=== PATIENT | female | born 1965 ===

== ENCOUNTER 2017-03-31 15:14 | Emergency (ER) | payer BC ==
[2017-03-31 15:58] VITALS: BP 138/86
--- NOTE | 2017-03-31 16:25 | UC ---
FLU HPI - HPI Summary HPI Summary: Body aches, sore throat fever, sinus pain and congestions "feels like when I get strep throat" - History of Current Complaint Chief Complaint: UCGeneralIllness Stated Complaint: SORE THROAT,SINUSES Time Seen by Provider: 03/31/17 16:14 Hx Obtained From: Patient Hx Last Menstrual Period: ablation ?: No Onset/Duration: Sudden Onset, Lasting Days - 5 Severity Currently: Moderate Severity Initially: Mild Associated Signs & Symptoms: Positive: Fever, Myalgia, Cough, Sore Throat, Nasal Congestion - Allergy/Home Medications Allergies/Adverse Reactions: Allergies Allergy/AdvReac Type Severity Reaction Status Date / Time No Known Allergies Allergy Verified 03/31/17 15:58 Home Medications: Home Medications ALPRAZolam TAB* [Xanax TAB*] 0.5 mg PO BID 03/31/17 [History Confirmed 03/31/17] PMH/Surg Hx/FS Hx/Imm Hx Previously Healthy: Yes - Surgical History Surgical History: Yes Surgery Procedure, Year, and Place: uterine ablation. 4 knee surg. lower jaw. left wrist - Family History Known Family History: Positive: None - Social History Occupation: Employed Full-time Lives: With Family Alcohol Use: None Substance Use Type: None Smoking Status (MU): Never Smoked Tobacco - Immunization History Most Recent Influenza Vaccination: none Review of Systems Constitutional: Fever, Chills, Fatigue Skin: Negative Eyes: Negative ENT: Sore Throat, Nasal Discharge, Sinus Congestion Respiratory: Cough Cardiovascular: Negative Gastrointestinal: Negative Genitourinary: Negative Motor: Negative Neurovascular: Negative Musculoskeletal: Negative Neurological: Negative Psychological: Negative Is Patient Immunocompromised?: No All Other Systems Reviewed And Are Negative: Yes Physical Exam Triage Information Reviewed: Yes Appearance: Well-Appearing, No Pain Distress, Well-Nourished Vital Signs: Initial Vital Signs Temp 99.1 F 03/31/17 15:53 Pulse 94 03/31/17 15:53 Resp 15 03/31/17 15:53 BP 138/86 03/31/17 15:53 Pulse Ox 99 03/31/17 15:53 Vital Signs Reviewed: Yes Eye Exam: Normal Eyes: Positive: Conjunctiva Clear ENT Exam: Normal ENT: Positive: Normal ENT inspection, Hearing grossly normal, Pharynx normal, Nasal congestion, Nasal drainage, TMs normal, Uvula midline. Negative: Tonsillar swelling, Tonsillar exudate, Trismus, Muffled voice, Hoarse voice, Dental tenderness, Sinus tenderness Dental Exam: Normal Neck exam: Normal Neck: Positive: Supple, Nontender, No Lymphadenopathy Respiratory Exam: Normal Respiratory: Positive: Chest non-tender, Lungs clear, Normal breath sounds, No respiratory distress, No accessory muscle use Cardiovascular Exam: Normal Cardiovascular: Positive: RRR, No Murmur, Pulses Normal, Brisk Capillary Refill Musculoskeletal Exam: Normal Musculoskeletal: Positive: Strength Intact, ROM Intact, No Edema Neurological Exam: Normal Neurological: Positive: Alert, Muscle Tone Normal Psychological Exam: Normal Skin Exam: Normal Diagnostics - Laboratory Diagnostic Studies Completed/Ordered: Influenza A positive Flu Course/Dx - Course Course Of Treatment: rest increase fluids tylenol ibuprofen for pain recheck prn with pcp - Differential Dx/Diagnosis Provider Diagnoses: Influenza A Discharge - Discharge Plan Condition: Stable Disposition: HOME Patient Education Materials: Influenza (ED) Referrals: [facility] [Outside] - If Needed
== END 2017-03-31 17:08 | disposition home or self-care (01) ==
LOC: UCCORT 15:14
DX: J11.1 Influenza due to unidentified influenza virus with other respiratory manifestations (principal)
CPT/HCPCS: 87502; 87651; 99201; G0463

== ENCOUNTER 2018-03-08 07:35 | Emergency (ER) | payer BC ==
[2018-03-08 07:48] VITALS: BP 120/82
--- NOTE | 2018-03-08 08:11 | UC ---
Ear Complaint HPI - HPI Summary HPI Summary: left side ear pressure / plugged x 7 days sinus pressure, nasal congestion , no fever, no chills , no cough - History of Current Complaint Chief Complaint: UCEar Stated Complaint: LEFT EAR CONCERN Time Seen by Provider: 03/08/18 07:48 Hx Obtained From: Patient Hx Last Menstrual Period: ablation ?: No Onset/Duration: Gradual Onset, Lasting Days - 7, Still Present Severity Initially: Moderate Severity Currently: Moderate Pain Intensity: 8 Aggravating Factors: Nothing Alleviating Factors: Nothing Associated Signs/Symptoms: Positive: Hearing Loss - right side - Allergies/Home Medications Allergies/Adverse Reactions: Allergies Allergy/AdvReac Type Severity Reaction Status Date / Time No Known Allergies Allergy Verified 03/08/18 07:43 Home Medications: Home Medications diPHENhydraMINE PO* [Benadryl PO 25 MG TAB*] 50 mg PO ONCE 03/08/18 [History Confirmed 03/08/18] PMH/Surg Hx/FS Hx/Imm Hx Previously Healthy: Yes - Surgical History Surgical History: Yes Surgery Procedure, Year, and Place: uterine ablation. 4 knee surg. lower jaw. left wrist - Family History Known Family History: Positive: None Negative: Diabetes - Social History Alcohol Use: None Substance Use Type: None Smoking Status (MU): Never Smoked Tobacco - Immunization History Most Recent Influenza Vaccination: none Review of Systems All Other Systems Reviewed And Are Negative: Yes Constitutional: Positive: Negative Skin: Positive: Negative Eyes: Positive: Negative ENT: Positive: Negative Respiratory: Positive: Negative Is Patient Immunocompromised?: No Physical Exam Triage Information Reviewed: Yes Appearance: Well-Appearing, No Pain Distress, Well-Nourished Vital Signs: Initial Vital Signs Temp 98.7 F 03/08/18 07:44 Pulse 84 03/08/18 07:44 Resp 14 03/08/18 07:44 BP 120/82 03/08/18 07:44 Pulse Ox 100 03/08/18 07:44 Vital Signs Reviewed: Yes Eye Exam: Normal Eyes: Positive: Conjunctiva Clear ENT: Positive: Normal ENT inspection, Hearing grossly normal, Pharynx normal, TM dull - left ear, Other - increase cerumen left ear , was flushed with warm water. Negative: TMs normal, TM bulging Neck exam: Normal Neck: Positive: Supple, Nontender, No Lymphadenopathy Respiratory: Positive: Chest non-tender, Lungs clear, Normal breath sounds Cardiovascular: Positive: RRR, No Murmur, Pulses Normal Abdominal Exam: Normal Abdomen Description: Positive: Nontender, No Organomegaly, Soft Skin Exam: Normal Ear Complaint Course/Dx - Differential Dx/Diagnosis Provider Diagnosis: Eustachian tube dysfunction Discharge - Sign-Out/Discharge Documenting (check all that apply): Patient Departure All imaging exams completed and their final reports reviewed: No Studies - Discharge Plan Condition: Stable Disposition: HOME Prescriptions: predniSONE TAB* [Deltasone 20 MG TAB*] 40 mg PO DAILY #10 tab Patient Education Materials: Earache (ED) Referrals: No Primary Care Phys,NOPCP [Primary Care Provider] - Additional Instructions: Eustachian tube dysfunction inflammation of the Eustachian tube not equalizing the pressure cont. with Flonase 2 spray each nostril daily prednisone 40 mg daily x 5 days follow up with your pcp if not better in 10 days - Billing Disposition and Condition Condition: STABLE Disposition: Home
== END 2018-03-08 08:20 | disposition home or self-care (01) ==
LOC: UCCORT 07:35
DX: H69.82 Other specified disorders of Eustachian tube, left ear (principal)
CPT/HCPCS: 99212; G0463